=== PATIENT | female | born 1985 | race American Indian/Alaskan Native ===

== ENCOUNTER 2017-12-10 16:09 | Inpatient (IN) | payer OTHER ==
[~2017-12-10] VITALS: Ht 157.5 cm; Wt 2.7 kg
[2017-12-10] MEDS ORDERED: PRENATAL TABLE1 EAC1 PO (17:07)
[2017-12-10] MEDS ORDERED: SYNTHROID50 MCG PO (17:08)
== END 2017-12-12 13:23 | DRG 775 ==
LOC: OB/GYN 16:09 → LDR 16:09 → OB/GYN 20:13
PROC: 10E0XZZ Delivery of Products of Conception, External Approach (ICD-10-PCS; principal; 2017-12-10)
PROC: 0HQ9XZZ Repair Perineum Skin, External Approach (ICD-10-PCS; 2017-12-10)
PROC: 10907ZC Drainage of Amniotic Fluid, Therapeutic from Products of Conception, Via Natural or Artificial Opening (ICD-10-PCS; 2017-12-10)
PROC: 4A033R1 Measurement of Arterial Saturation, Peripheral, Percutaneous Approach (ICD-10-PCS; 2017-12-10)
PROC: 4A1HXCZ Monitoring of Products of Conception, Cardiac Rate, External Approach (ICD-10-PCS; 2017-12-10)
DX: O60.14X0 Preterm labor third trimester with preterm delivery third trimester, not applicable or unspecified (principal); O70.0 First degree perineal laceration during delivery; Z3A.35 35 weeks gestation of pregnancy; Z37.0 Single live birth

== ENCOUNTER 2017-12-13 22:43 | Emergency (ER) | payer OTHER ==
[~2017-12-13] VITALS: Ht 157.5 cm; Wt 60.3 kg
[~2017-12-13 22:43] MED LIST: PRENATAL TABLE1 EAC1 PO; SYNTHROID50 MCG PO
== END 2017-12-14 01:31 | disposition home or self-care (01) ==
LOC: ER 22:43
DX: R50.9 Fever, unspecified (principal)